=== PATIENT | male | born 1965 | race Caucasian/White ===

== ENCOUNTER 2018-03-21 13:42 | Emergency (ER) | payer BC ==
[~2018-03-21] VITALS: Ht 177.8 cm; Wt 77.1 kg
[2018-03-21 13:59] VITALS: BP 128/78
--- NOTE | 2018-03-21 14:06 | Emergency Room Report ---
History of Present Illness General Chief Complaint: Earache Source: Patient Present Illness HPI 52 YO Male presents to the ED c/o Right ear discomfort, with ear D/C x 5 days. 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 Denies f/c/ neck pain /stiffness. pt. denies changes in hearing /loss of hearing. reports q-tip use. denies ear trauma. denies recurrent ear infections. Allergies: Coded Allergies: No Known Allergies (Unverified , 03/21/18) Patient History Past Medical History: see triage record Past Surgical History: none Pertinent Family History: none Reviewed Nursing Documentation: PMH: Agreed; PSxH: Agreed Nursing Documentation-PMH Past Medical History: No Stated History Review of Systems All Other Systems: negative except mentioned in HPI Physical Exam Vital Signs Date Time Temp Pulse Resp B/P (MAP) Pulse Ox O2 Delivery O2 Flow Rate FiO2 03/21/18 13:45 98.2 73 16 128/78 94 Room Air 98.2 Sp02 EP Interpretation: reviewed, normal General Appearance: no apparent distress, alert, GCS 15, non-toxic Head: normocephalic, atraumatic ENT: hearing grossly normal, normal voice, other - purulent milky d/c noted in the right ear canal with macerated appearance of the canal. no external tenderness. TM is WNL no rupture. Neck: full range of motion Respiratory: lungs clear, normal breath sounds, speaking full sentences Cardiovascular #1: regular rate, rhythm Musculoskeletal: gait/station normal, normal range of motion Neurologic: alert, oriented x3, responsive, motor strength/tone normal, sensory intact, normal gait, speech normal, grossly normal Psychiatric: judgement/insight normal Skin: normal color, no rash, warm/dry, well hydrated Lymphatic: no adenopathy Medical Decision Making PA Attestation Dr. Swan is my supervising Physician whom patient management has been discussed with. Diagnostic Impression: Primary Impression: Otitis externa Qualified Codes: H60.501 - Unspecified acute noninfective otitis externa, right ear ER Course 52 YO Male presents to the ED c/o Right ear discomfort, with ear D/C x 5 days. 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 Denies f/c/ neck pain /stiffness. pt. denies changes in hearing /loss of hearing. reports q-tip use. denies ear trauma. denies recurrent ear infections. Ddx considered but are not limited to OM, OE, mastoiditis, TM perforation, FB, shingles just to name a few. Vital signs: are WNL, pt. is afebrile H&PE are most consistent with otitis Externa ORDERS: none required at this time, the diagnosis is clinical -OTOSCOPY: Right ear canal is macerated, no appreciable external ear tenderness to palpation, creamy white d/c noted in the right ear canal. the TM is WNL. ED INTERVENTIONS: None required at this time. DISCHARGE: At this time pt. is stable for d/c to home. With PO ABX. Will provide printed patient care instructions, and any necessary prescriptions. Care plan and follow up instructions have been discussed with the patient prior to discharge. Last Vital Signs Date Time Temp Pulse Resp B/P (MAP) Pulse Ox O2 Delivery O2 Flow Rate FiO2 03/21/18 13:59 98.2 80 16 128/78 94 Room Air 98.2 Disposition: HOME, SELF-CARE Condition: Stable Scripts Ciprofloxacin Hcl/Dexameth (CIPRODEX OTIC SUSPENSION) 7.5 Ml Drops.susp 4 DROP RIGHT EAR Q12HR, #7.5 ML Prov: Mily Rosales 03/21/18 Patient Instructions: Otitis Externa, [id number] Additional Instructions: Take medications as directed. Follow up with a Primary Care Provider in 3-5 days, even if your symptoms have resolved. --Please review list of primary care clinics, if you do not already have a primary care provider Return sooner to ED if new symptoms occur, or current symptoms become worse. - Please note that this Emergency Department Report was dictated using [employer] professional technology software, occasionally this can lead to erroneous entry secondary to interpretation by the dictation equipment. Mily Rosales Mar 21, 2018 14:06
[2018-03-21] MEDS ORDERED: CIPRODEX OTIC7.5 M1 RIGHT EAR (14:08)
[2018-03-21 14:30] VITALS: BP 128/78
== END 2018-03-21 14:30 | disposition home or self-care (01) ==
LOC: EMR 14:05
DX: H60.91 Unspecified otitis externa, right ear (principal)
CPT/HCPCS: 99283

== ENCOUNTER 2019-09-07 10:09 | Emergency (ER) | payer BC ==
[~2019-09-07] VITALS: Ht 177.8 cm; Wt 77.1 kg
[~2019-09-07 10:09] MED LIST: CIPRODEX OTIC7.5 M1 RIGHT EAR
--- NOTE | 2019-09-07 10:15 | NUR ---
ED Nurse Note: patient ambulated into ER with a c/o abdominal pain, SOB and chills since last night. Patient states he drank beer lastnight and he sometimes everyday. Patient is aaox4, on room air with stable vital signs. ERMD is at bedside.
[2019-09-07 10:28] VITALS: BP 137/93
--- NOTE | 2019-09-07 10:28 | Emergency Room Report ---
History of Present Illness General Chief Complaint: Flu Like Symptoms Source: Medical Record Present Illness HPI Patient is a 54-year-old male presents after increased congestion. He reports having recent heavy alcohol intake. He cannot state how much he drank. Reports having some increased congestion as well as cough. Denies any bloody stools. Reports having some difficulty with sleeping last night. Allergies: Coded Allergies: No Known Allergies (Unverified , 03/21/18) Patient History Past Medical History: see triage record Reviewed Nursing Documentation: PMH: Agreed; PSxH: Agreed Nursing Documentation-PMH Past Medical History: No History, Except For Review of Systems All Other Systems: negative except mentioned in HPI Physical Exam Vital Signs Date Time Temp Pulse Resp B/P (MAP) Pulse Ox O2 Delivery O2 Flow Rate FiO2 09/07/19 10:11 98.8 91 18 137/93 (108) 95 Room Air Sp02 EP Interpretation: reviewed, normal General Appearance: normal inspection, well appearing, no apparent distress, alert, GCS 15 Head: atraumatic ENT: normal ENT inspection, hearing grossly normal, normal voice Neck: normal inspection, full range of motion, supple, no bony tend Respiratory: normal inspection, lungs clear, normal breath sounds, no respiratory distress, no retraction, no wheezing Cardiovascular #1: regular rate, rhythm, no edema Gastrointestinal: normal inspection, normal bowel sounds, non tender, soft, no guarding, no hernia Genitourinary: no CVA tenderness Musculoskeletal: normal inspection, back normal, normal range of motion Neurologic: alert, motor strength/tone normal, supervisor mill III-XII nml as tested, oriented x3, responsive, speech normal, normal inspection Psychiatric: normal inspection, judgement/insight normal, mood/affect normal Medical Decision Making Diagnostic Impression: Primary Impression: Upper respiratory infection ER Course Patient present for increased congestion. Differential diagnosis include was not limited to bronchitis, upper respiratory infection, pneumonia, among others. Patient was noted to have benign exam. He did not appear to have any evidence of respiratory abnormalities on lung exam and appears to be calm. He does not appear to be intoxicated at this time. Patient appears to be stable for outpatient management. He does not appear to require any testing at this time. Patient be discharged home. He was advised to follow-up with his primary care physician for recheck and to discontinue alcohol use. Last Vital Signs Date Time Temp Pulse Resp B/P (MAP) Pulse Ox O2 Delivery O2 Flow Rate FiO2 09/07/19 10:11 98.8 91 18 137/93 (108) 95 Room Air Status: improved Disposition: HOME, SELF-CARE Condition: Stable [place] Swan MD Sep 07, 2019 10:28
[2019-09-07] MEDS ORDERED: PRILOSEC OTC20 MG ORAL (10:29)
--- NOTE | 2019-09-07 10:35 | NUR ---
ED Nurse Note: Pt cleared by Dr. Swan for discharge. DC instructions/prescription was given and explained to pt and verbalized understanding of teachings. All medical deviecs such as ID band removed. Pt is AAO x4, ambulatory and left with all personal belongings.
== END 2019-09-07 10:35 | disposition home or self-care (01) ==
LOC: EMR 10:25
DX: J06.9 Acute upper respiratory infection, unspecified (principal)
CPT/HCPCS: 99281